=== PATIENT | female | born 1960 | race Caucasian/White ===

== ENCOUNTER → 2016-11-17 | Outpatient (CLI) | payer OTHER | LOC: BRMIMAGING 14:24 | PROVIDERS: ATTEND Family Medicine | DX: Z12.31 Encounter for screening mammogram for malignant neoplasm of breast (principal) | CPT/HCPCS: G0202 ==

== ENCOUNTER → 2018-05-03 | Outpatient (CLI) | payer OTHER | LOC: BRMIMAGING 14:52 | PROVIDERS: ATTEND Family Medicine | DX: Z12.31 Encounter for screening mammogram for malignant neoplasm of breast (principal) ==